=== PATIENT | male | born 1960 | race African-American/Black ===

== ENCOUNTER 2021-12-24 00:19 | Inpatient (IN) | payer MEDICAID, OTHER ==
[~2021-12-24] VITALS: Ht 170.2 cm; Wt 56.7 kg
[2021-12-24] MEDS ORDERED: ONDANSETRON HCL 4MG/2ML INJ IV STA (00:34)
[2021-12-24] MEDS ORDERED: MORPHINE SULFATE 4 MG/ML CPJ (NOT FOR IM USE) IV STA (00:34)
[2021-12-24] MEDS ORDERED: SODIUM CHLORIDE 0.9% 1,000 ML IV ONE (00:45)
[2021-12-24 01:10] LABS: EOSINOPHILS % 0.1 % (0.0-5.0); HEMATOCRIT. 26.3 % (42.0-52.0); HEMOGLOBIN. 9.2 g/dL (14.0-18.0); LYMPHOCYTES % 17.4 % (20.0-50.0); MEAN CORPUSCULAR HEMOGLOBIN 31.2 pg (28.0-32.0); MEAN CORPUSCULAR VOLUME 89.3 fL (80.0-94.0); MEAN PLATELET VOLUME 6.7 fl (7.4-10.4); MONOCYTES % 6.5 % (2.0-8.0); PLATELET 291 x1000/uL (130-400); RED BLOOD CELL COUNT 2.95 mill/uL (4.7-6.1); RED CELL DISTRIBUTION WIDTH 14.1 % (11.6-14.6)
[2021-12-24 01:17] LABS: CHLORIDE 102 mEq/L (98-107)
[2021-12-24] MEDS ORDERED: IOHEXOL-300 100 ML BOTTLE ONE (02:38)
[2021-12-24 03:15] LABS: CLARITY URINE CLEAR (CLEAR); COLOR URINE YELLOW (YELLOW); KETONES URINE NEGATIVE (NEGATIVE); LEUKOCYTE ESTERASE URINE NEGATIVE (NEGATIVE); NITRITE URINE NEGATIVE (NEGATIVE); OCCULT BLOOD URINE NEGATIVE (NEGATIVE); PH URINE 5.5 (4.5-8.0); PROTEIN URINE NEGATIVE (NEGATIVE); UROBILINOGEN URINE 0.2 E.U./dL (0.2-1.0)
[2021-12-24] MEDS ORDERED: DEXTROSE 50% WATER 50ML SYRINGE IV ONE (08:45)
[2021-12-24 09:59] VITALS: BP 97/70
[2021-12-24] MEDS ORDERED: ACETAMINOPHEN 325MG TABLET PO PRN (10:45)
[2021-12-24] MEDS ORDERED: ONDANSETRON HCL 4MG/2ML INJ IV PRN (10:45)
[2021-12-24] MEDS ORDERED: POTASSIUM CHLORIDE 20MEQ TABLET SR PO SCH (11:00)
[2021-12-24] MEDS ORDERED: FUROSEMIDE 20MG/2ML VIAL IVP SCH (11:00)
[2021-12-24] MEDS: BLOOD SUGAR DIAGNOSTIC STRIP TEST SCH ×3 (11:41→21:00)
[2021-12-24 12:00] VITALS: BP 103/58
[2021-12-24] MEDS ORDERED: POTA20LI52 ORI (13:33)
[2021-12-24] MEDS ORDERED: MIRT-89 PO (13:33)
[2021-12-24] MEDS ORDERED: ONDA4TAB50 MT (13:33)
[2021-12-24 15:47] LABS: INR 1.3; PROTHROMBIN TIME 13.5 sec (9.6-11.0)
[2021-12-24 16:00] VITALS: BP 105/81
[2021-12-24] MEDS: FUROSEMIDE 40MG/4ML VIAL IVP SCH ×2 (16:04→17:15)
[2021-12-24] MEDS ORDERED: DEXT 5%/0.45% NACL 1000ML 1,000 ML IV SCH (18:15)
[2021-12-24 20:00] VITALS: BP 65/43
[2021-12-25] VITALS (7 sets, daily range): BP systolic 66–92; BP diastolic 41–71
[2021-12-25 06:48] LABS: BASOPHILS % 1.9 % (0.0-2.0); HEMATOCRIT. 29.5 % (42.0-52.0); HEMOGLOBIN. 10.2 g/dL (14.0-18.0); LYMPHOCYTES % 14.9 % (20.0-50.0); MEAN CORPUSCULAR HEMOGLOBIN 31.6 pg (28.0-32.0); MEAN CORPUSCULAR VOLUME 91.4 fL (80.0-94.0); MEAN PLATELET VOLUME 7.8 fl (7.4-10.4); MONOCYTES % 5.1 % (2.0-8.0); NEUTROPHILS % 78.1 % (40.0-76.0); PLATELET 304 x1000/uL (130-400); RED BLOOD CELL COUNT 3.23 mill/uL (4.7-6.1); RED CELL DISTRIBUTION WIDTH 14.9 % (11.6-14.6)
[2021-12-25] MEDS: FUROSEMIDE 40MG/4ML VIAL IVP SCH (06:51)
[2021-12-25] MEDS: BLOOD SUGAR DIAGNOSTIC STRIP TEST SCH ×5 (06:51→21:00)
[2021-12-25 07:00] LABS: CHLORIDE 99 mEq/L (98-107)
[2021-12-25] MEDS ORDERED: SODIUM BICARBONATE 4% (2.4MEQ) 5ML VIAL IV ONE (07:56)
[2021-12-25] MEDS ORDERED: LIDOCAINE HCL/PF 1% 10 MG/ML 5ML VIAL ONE (07:56)
[2021-12-25] MEDS: MIDODRINE HCL 5MG TABLET PO SCH ×2 (15:18→16:58)
[2021-12-25] MEDS: DEXT 10% WATER 1,000 ML IV SCH ×2 (16:58→16:59)
[2021-12-25] MEDS: DEXTROSE 50% WATER 50ML SYRINGE IV PRN (20:54)
[2021-12-25] MEDS ORDERED: DEXT 10%/0.9% NACL 1,000 ML IV SCH (22:15)
[2021-12-25] MEDS: SODIUM CHLORIDE 23.4% 154 MEQ in DEXT 10% WATER 1,000 ML IV SCH (22:58)
[2021-12-26] VITALS: BP 90/54
[2021-12-26 04:00] VITALS: BP_SYST 80; BP_SYST 88; BP_DIAS 56; BP_DIAS 60
[2021-12-26] MEDS: BLOOD SUGAR DIAGNOSTIC STRIP TEST SCH ×6 (05:29→21:00)
[2021-12-26 08:00] VITALS: BP 81/89
[2021-12-26 09:04] LABS: CLARITY URINE CLEAR (CLEAR); COLOR URINE YELLOW (YELLOW); KETONES URINE NEGATIVE (NEGATIVE); LEUKOCYTE ESTERASE URINE NEGATIVE (NEGATIVE); NITRITE URINE NEGATIVE (NEGATIVE); OCCULT BLOOD URINE TRACE (NEGATIVE); PROTEIN URINE 1+ (NEGATIVE); SPECIFIC GRAVITY URINE 1.016 (1.005-1.030); UROBILINOGEN URINE 0.2 E.U./dL (0.2-1.0)
[2021-12-26] MEDS: MIDODRINE HCL 5MG TABLET PO SCH ×2 (09:20→12:28)
[2021-12-26 12:00] VITALS: BP 88/64
[2021-12-26 16:00] VITALS: BP 76/51
[2021-12-26 16:24] LABS: BASOPHILS % 0.2 % (0.0-2.0); HEMATOCRIT. 30.4 % (42.0-52.0); HEMOGLOBIN. 10.4 g/dL (14.0-18.0); LYMPHOCYTES % 15.7 % (20.0-50.0); MEAN CORPUSCULAR HEMOGLOBIN 31.2 pg (28.0-32.0); MEAN CORPUSCULAR VOLUME 91.4 fL (80.0-94.0); MEAN PLATELET VOLUME 7.8 fl (7.4-10.4); MONOCYTES % 4.3 % (2.0-8.0); NEUTROPHILS % 79.8 % (40.0-76.0); PLATELET 288 x1000/uL (130-400); RED BLOOD CELL COUNT 3.33 mill/uL (4.7-6.1); RED CELL DISTRIBUTION WIDTH 14.1 % (11.6-14.6)
[2021-12-26] MEDS ORDERED: MIDODRINE HCL 5MG TABLET PO SCH (17:00)
[2021-12-26 17:15] LABS: CHLORIDE 103 mEq/L (98-107)
[2021-12-26] MEDS: SODIUM CHLORIDE 23.4% 154 MEQ in DEXT 10% WATER 1,000 ML IV SCH (17:20)
[2021-12-26 20:00] VITALS: BP 80/56
[2021-12-27 00:20] VITALS: BP 73/53
[2021-12-27 04:00] VITALS: BP 72/53
[2021-12-27 06:12] LABS: CHLORIDE 104 mEq/L (98-107)
[2021-12-27 06:33] LABS: BASOPHILS % 0.1 % (0.0-2.0); HEMATOCRIT. 28.6 % (42.0-52.0); HEMOGLOBIN. 9.8 g/dL (14.0-18.0); LYMPHOCYTES % 18.3 % (20.0-50.0); MEAN CORPUSCULAR HEMOGLOBIN 31.5 pg (28.0-32.0); MEAN CORPUSCULAR VOLUME 92.3 fL (80.0-94.0); MONOCYTES % 6.9 % (2.0-8.0); NEUTROPHILS % 74.7 % (40.0-76.0); PLATELET 258 x1000/uL (130-400); RED CELL DISTRIBUTION WIDTH 14.1 % (11.6-14.6)
[2021-12-27] MEDS: BLOOD SUGAR DIAGNOSTIC STRIP TEST SCH ×4 (07:40→21:40)
[2021-12-27 08:00] VITALS: BP 84/61
[2021-12-27] MEDS: MIDODRINE HCL 5MG TABLET PO SCH ×3 (08:29→17:36)
[2021-12-27 12:00] VITALS: BP 83/61
[2021-12-27 16:00] VITALS: BP 100/76
[2021-12-27] MEDS: DEXT 5%/0.45% NACL 1000ML 1,000 ML IV SCH (17:37)
[2021-12-27 20:00] VITALS: BP 89/60
[2021-12-28] VITALS: BP 70/45
[2021-12-28 04:00] VITALS: BP 85/55
[2021-12-28] MEDS: DEXTROSE 50% WATER 50ML SYRINGE IV PRN (06:38)
[2021-12-28] MEDS: BLOOD SUGAR DIAGNOSTIC STRIP TEST SCH ×3 (07:40→17:22)
[2021-12-28 08:00] VITALS: BP 95/56
[2021-12-28] MEDS: MIDODRINE HCL 5MG TABLET PO SCH ×3 (08:44→17:22)
[2021-12-28] MEDS: DEXT 5%/0.45% NACL 1000ML 1,000 ML IV SCH (11:14)
[2021-12-28 12:00] VITALS: BP 83/60
[2021-12-28 16:00] VITALS: BP 91/67
[2021-12-28] MEDS: TAMSULOSIN HCL 0.4MG SR CAPSULE PO SCH (16:07)
[2021-12-28 20:00] VITALS: BP 82/55
[2021-12-29] VITALS: BP 98/72
[2021-12-29 04:00] VITALS: BP 77/84
[2021-12-29 08:00] VITALS: BP 81/44
[2021-12-29] MEDS: MIDODRINE HCL 5MG TABLET PO SCH ×3 (09:09→18:27)
[2021-12-29] MEDS: TAMSULOSIN HCL 0.4MG SR CAPSULE PO SCH (09:09)
[2021-12-29 12:00] VITALS: BP 89/58
[2021-12-29] MEDS: BLOOD SUGAR DIAGNOSTIC STRIP TEST SCH ×3 (12:40→22:44)
[2021-12-29 16:00] VITALS: BP 78/49
[2021-12-29 20:00] VITALS: BP 127/81
[2021-12-29] MEDS: FLUDROCORTISONE ACETATE 0.1MG TABLET PO SCH (22:42)
[2021-12-30] VITALS (7 sets, daily range): BP systolic 72–144; BP diastolic 51–62
[2021-12-30] MEDS: DEXTROSE 50% WATER 50ML SYRINGE IV PRN (06:34)
[2021-12-30] MEDS: BLOOD SUGAR DIAGNOSTIC STRIP TEST SCH ×4 (07:40→20:37)
[2021-12-30] MEDS: FLUDROCORTISONE ACETATE 0.1MG TABLET PO SCH (08:57)
[2021-12-30] MEDS: TAMSULOSIN HCL 0.4MG SR CAPSULE PO SCH (08:57)
[2021-12-30] MEDS: MIDODRINE HCL 5MG TABLET PO SCH ×3 (08:58→17:46)
[2021-12-30 11:32] LABS: CLARITY URINE CLOUDY (CLEAR); COLOR URINE DARK YELLOW (YELLOW); KETONES URINE NEGATIVE (NEGATIVE); LEUKOCYTE ESTERASE URINE 1+ (NEGATIVE); NITRITE URINE NEGATIVE (NEGATIVE); OCCULT BLOOD URINE 3+ (NEGATIVE); PH URINE 5.5 (4.5-8.0); PROTEIN URINE 1+ (NEGATIVE); SPECIFIC GRAVITY URINE 1.018 (1.005-1.030); UROBILINOGEN URINE 0.2 E.U./dL (0.2-1.0)
[2021-12-30] MEDS: LEVOFLOXACIN 500MG TABLET PO SCH (12:58)
[2021-12-30] MEDS ORDERED: SODIUM CHLORIDE 0.9% 500 ML IV SCH (13:15)
[2021-12-31] VITALS: BP 105/56
[2021-12-31 04:00] VITALS: BP 105/59
[2021-12-31] MEDS: DEXTROSE 50% WATER 50ML SYRINGE IV PRN (06:12)
[2021-12-31] MEDS: BLOOD SUGAR DIAGNOSTIC STRIP TEST SCH ×4 (06:20→20:42)
[2021-12-31 08:01] VITALS: BP 87/69
[2021-12-31] MEDS: FLUDROCORTISONE ACETATE 0.1MG TABLET PO SCH (09:25)
[2021-12-31] MEDS: MIDODRINE HCL 5MG TABLET PO SCH ×3 (09:25→18:06)
[2021-12-31] MEDS: TAMSULOSIN HCL 0.4MG SR CAPSULE PO SCH (09:25)
[2021-12-31 11:55] VITALS: BP 76/52
[2021-12-31] MEDS: LEVOFLOXACIN 500MG TABLET PO SCH (13:30)
[2021-12-31 16:00] VITALS: BP 81/59
[2021-12-31 20:00] VITALS: BP 138/81
[2022-01-01] VITALS: BP 111/69
[2022-01-01 04:00] VITALS: BP 111/53
[2022-01-01] MEDS: DEXTROSE 50% WATER 50ML SYRINGE IV PRN (06:19)
[2022-01-01] MEDS: BLOOD SUGAR DIAGNOSTIC STRIP TEST SCH ×4 (07:04→21:00)
[2022-01-01 08:00] VITALS: BP 81/59
[2022-01-01] MEDS: FLUDROCORTISONE ACETATE 0.1MG TABLET PO SCH (08:43)
[2022-01-01] MEDS: TAMSULOSIN HCL 0.4MG SR CAPSULE PO SCH (08:43)
[2022-01-01] MEDS: MIDODRINE HCL 5MG TABLET PO SCH ×3 (08:43→17:41)
[2022-01-01 12:00] VITALS: BP 70/57
[2022-01-01] MEDS: LEVOFLOXACIN 500MG TABLET PO SCH (13:00)
[2022-01-01 16:00] VITALS: BP 91/66
[2022-01-01 20:00] VITALS: BP 96/69
[2022-01-02] VITALS: BP 85/55
[2022-01-02 04:00] VITALS: BP 89/51
[2022-01-02] MEDS: BLOOD SUGAR DIAGNOSTIC STRIP TEST SCH ×3 (07:40→17:05)
[2022-01-02 08:00] VITALS: BP 82/55
[2022-01-02] MEDS: MIDODRINE HCL 5MG TABLET PO SCH ×3 (08:57→17:07)
[2022-01-02] MEDS: TAMSULOSIN HCL 0.4MG SR CAPSULE PO SCH (08:57)
[2022-01-02 12:00] VITALS: BP 87/62
[2022-01-02] MEDS: FLUDROCORTISONE ACETATE 0.1MG TABLET PO SCH (12:32)
[2022-01-02] MEDS: LEVOFLOXACIN 500MG TABLET PO SCH (12:32)
[2022-01-02 16:00] VITALS: BP 82/59
[2022-01-02 20:00] VITALS: BP 89/62
[2022-01-03 08:00] VITALS: BP 86/56
[2022-01-03] MEDS: TAMSULOSIN HCL 0.4MG SR CAPSULE PO SCH (09:19)
[2022-01-03] MEDS: MIDODRINE HCL 5MG TABLET PO SCH ×3 (09:19→17:24)
[2022-01-03 11:54] VITALS: BP 87/59
[2022-01-03] MEDS: BLOOD SUGAR DIAGNOSTIC STRIP TEST SCH ×3 (12:23→21:00)
[2022-01-03] MEDS: LEVOFLOXACIN 500MG TABLET PO SCH (12:24)
[2022-01-03] MEDS: FLUDROCORTISONE ACETATE 0.1MG TABLET PO SCH (12:24)
[2022-01-03 16:00] VITALS: BP 89/59
[2022-01-03 20:00] VITALS: BP 128/48
[2022-01-04] VITALS: BP 131/48
[2022-01-04 04:00] VITALS: BP_SYST 103; BP_DIAS 71; BP_DIAS 78
[2022-01-04] MEDS: BLOOD SUGAR DIAGNOSTIC STRIP TEST SCH (06:16)
[2022-01-04 08:00] VITALS: BP 90/74
[2022-01-04] MEDS: TAMSULOSIN HCL 0.4MG SR CAPSULE PO SCH (09:00)
[2022-01-04] MEDS: MIDODRINE HCL 5MG TABLET PO SCH (09:29)
[2022-01-04] MEDS: FLUDROCORTISONE ACETATE 0.1MG TABLET PO SCH (09:30)
[2022-01-04 11:18] VITALS: BP 95/74
== END 2022-01-04 11:30 | disposition hospice, inpatient (51) | DRG 281 ==
LOC: ER 00:19 → 7WST 05:35 → UNDODISIN 12-28 18:50
PROVIDERS: ADMIT Internal Medicine; ATTEND Internal Medicine
PROC: 0W9G3ZZ Drainage of Peritoneal Cavity, Percutaneous Approach (ICD-10-PCS; principal; 2021-12-25)
DX: C78.7 Secondary malignant neoplasm of liver and intrahepatic bile duct (principal); E43 Unspecified severe protein-calorie malnutrition; C79.51 Secondary malignant neoplasm of bone; R18.8 Other ascites; E11.649 Type 2 diabetes mellitus with hypoglycemia without coma; I95.9 Hypotension, unspecified; C34.90 Malignant neoplasm of unspecified part of unspecified bronchus or lung; D64.9 Anemia, unspecified; E87.6 Hypokalemia; Z20.822 Contact with and (suspected) exposure to COVID-19; R74.01 Elevation of levels of liver transaminase levels; Z66 Do not resuscitate; R26.2 Difficulty in walking, not elsewhere classified; R74.8 Abnormal levels of other serum enzymes; Z85.830 Personal history of malignant neoplasm of bone; Z68.1 Body mass index [BMI] 19.9 or less, adult
CPT/HCPCS: 36415; 49083; 71045; 74177; 80048; 80053; 81003; 82962; 83036; 83605; 83880; 84484; 85025; 86850; 86900; 87426; 93005; 93970; 97110; 97116; 97162; 97530; 99291; J1940; J2270; J2405; J3490; J7030; J7131; Q9967; A4315